=== PATIENT | male | born 1950 | race Caucasian/White ===

== ENCOUNTER → 2017-11-16 | Outpatient (CLI) | payer MEDICARE ==
[~2017-11-16] MED LIST: LORT7.5T3 PO; NAPR550 PO; ONDA1TAB16 PO; ZOLO50TA PO; [UNRECOGNIZED DRUG - REMARK]
[2017-11-16 10:45] LABS: HEMATOCRIT 42.1 % (39.0-51.0); HEMOGLOBIN 14.7 GM/DL (13.0-17.0); MEAN CELL VOLUME 90.3 FL (80.0-100.0); MEAN CORPUSCULAR HEMOGLOBIN 31.5 PG (27.0-34.0); MEAN CORPUSCULAR HGB CONC 34.8 % (32.0-36.0); MEAN PLATELET VOLUME 8.8 FL (7.0-11.0); PLATELET COUNT 193 TH/MM3 (150-450); RED BLOOD COUNT 4.66 MIL/MM3 (4.50-5.90); RED CELL DISTRIBUTION WIDTH 13.6 % (11.6-17.2); WHITE BLOOD COUNT 5.3 TH/MM3 (4.0-11.0)
[2017-11-16 10:49] LABS: PROTHROMBIN TIME - PATIENT 10.6 SEC (9.8-11.6)
[2017-11-16 11:03] LABS: ALBUMIN 3.8 GM/DL (3.4-5.0); AST (GOT) 14 U/L (15-37); BLOOD UREA NITROGEN 17 MG/DL (7-18); CALCIUM 9.1 MG/DL (8.5-10.1); CHLORIDE 109 MEQ/L (98-107); CREATININE 1.04 MG/DL (0.60-1.30); GLOMERULAR FILTRATION RATE 71 ML/MIN (>89); GLUCOSE,FASTING 83 MG/DL (74-99); SODIUM (NA) 143 MEQ/L (136-145)
[2017-11-16 11:04] LABS: ALT (GPT) 32 U/L (12-78)
[2017-11-16 11:07] LABS: ALKALINE PHOSPHATASE 64 U/L (45-117); TOTAL BILIRUBIN ADULT 0.5 MG/DL (0.2-1.0)
[2017-11-16 11:07] LABS: BILIRUBIN, URINE NEG (NEG); BLOOD, URINE NEG (NEG); GLUCOSE,URINE NEG (NEG); HYALINE CAST, URINE 2 /lpf (RARE); KETONE, URINE NEG (NEG); MUCUS URINE FEW /lpf (OCC); NITRITE,URINE NEG (NEG); PH, URINE 5.5 (5.0-8.5); SQUAMOUS EPITHELIAL CELL URINE 1 /hpf (0-5); URINE COLOR YELLOW (YELLW/STRAW); URINE LEUKOCYTE ESTERASE NEG (NEG)
--- NOTE | 2017-11-16 18:20 | EKG ---
Date Performed: 11/16/2017 Time Performed: 09:45:28 PTAGE: 67 years EKG: SINUS BRADYCARDIA WITH OCCASIONAL VENTRICULAR PREMATURE COMPLEXES LEFT VENTRICULAR HYPERTRO PHY AND ST-T CHANGE ABNORMAL ECG NO PREVIOUS TRACING DOCTOR: Isauro De Los Santos Interpretating Date/Time 11/16/2017 18:18:59
== END ==
LOC: CPRE 09:23
PROVIDERS: ATTEND Surgery
DX: Z01.810 Encounter for preprocedural cardiovascular examination (principal); Z01.812 Encounter for preprocedural laboratory examination; Z01.818 Encounter for other preprocedural examination; M79.609 Pain in unspecified limb; R94.31 Abnormal electrocardiogram [ECG] [EKG]
CPT/HCPCS: 36415; 80053; 81001; 85027; 85610; 85730; 93005

== ENCOUNTER → 2017-11-17 | Day surgery (SDC) | payer MEDICARE ==
--- NOTE | 2017-11-16 17:31 | MH ---
cc: Luca Reynoso MD, J Richard R MD DATE OF ADMISSION: 11/17/2017 ADMITTING DIAGNOSIS: Torn meniscus, left knee, now for arthroscopy of left knee HISTORY OF PRESENT ILLNESS: This pleasant 67-year-old male is being admitted today for arthroscopy of his left knee due to a torn medial meniscus as diagnosed by MRI. PAST MEDICAL HISTORY: The patient has a history of no medical problems. MEDICATIONS: Sertraline 100 mg tablet. PAST SURGICAL HISTORY: None. REVIEW OF SYSTEMS: Noncontributory. FAMILY HISTORY: Noncontributory. SOCIAL HISTORY: He smokes cigars. He does not drink. ALLERGIES: HE HAS AN ALLERGY TO PENICILLIN HE THINKS. PHYSICAL EXAMINATION: GENERAL: We find a 67-year-old male, well developed, well nourished, oriented x3 complaining of pain in the left knee. VITAL SIGNS: Blood pressure 198/70, pulse 72, respirations 16, temperature 98.3, pulse oximetry 96% on room air. HEENT: PERRLA, EOMI. Ears, nose, mouth clear. NECK: Supple. LUNGS: Clear. HEART: Regular rate. ABDOMEN: Soft, positive bowel sounds, nontender. EXTREMITIES: Reveals the left knee to be tender over the medial joint surface. No swelling or erythema. He is neurovascularly intact to his toes. IMPRESSION: Torn medial meniscus, left knee. PLAN: Admission for arthroscopy of left knee today. The patient was given prescription for postoperative pain control in the office. MD YENI Badillo/ , 05:18 PM , 05:30 PM
[~2017-11-17] VITALS: Ht 182.9 cm; Wt 101.9 kg
[~2017-11-17] MED LIST changes: +*morphine SULFATE 10 MG/ML PERIprocedure ONLY ONE; +ACETAMINOPHEN/HYDROcodone 325 MG/5 MG TAB PO PRN; +BUPIVACAINE HCL PF 0.5% 30 ML VIAL ONE; +DEXAMETHASONE SOD PHOS 4 MG/ML VIAL IV ONE; +DEXAMETHASONE SOD PHOS 4 MG/ML VIAL ONE; +DO NOT ADM ANY ANTICOAGULANT DRUGS PRN; +LIDOCAINE HCL 1% PF 5 ML SYRINGE OTHER ONE; -LORT7.5T3 PO; +MEPERIDINE HCL 50 MG/ML VIAL IM PRN; +MIDAZOLAM HCL 2 MG/2 ML VIAL ONE; -NAPR550 PO; -ONDA1TAB16 PO; +ONDANSETRON HCL 4 MG/2 ML VIAL IV ONE; +ONDANSETRON ODT 4 MG TAB SL PRN; +PROPOFOL 200 MG/20 ML AMP IV ONE; +ceFAZolin 2 GM PREMIX 50 ML ONE; +ePHEDrine/NS 25 MG/5 ML SYRINGE IV ONE
--- NOTE | 2017-11-17 09:34 | HHI.PR ---
Immediate Post Op Note Procedure Date: Nov 17, 2017 Pre Op Diagnosis: torn medial meniscus left knee Post Op Diagnosis: torn medial meniscus left knee Surgeon: Luca Reynoso MD Vp Data(s): Tasia NIEVES Procedure: Left Knee Arthroscopy with meniscectomy and chondroplasty Complications: none Specimen(s) removed: none Estimated blood loss: < 10cc Anesthesia: General Drains: None IVF Urinary Output (mLs): 0 (no kapoor) Tourniquet time (min at mmHg) none Patient to: SDS Patient Condition: Good Implant/Devices: SEE IMPLANT LOG (if applicable) Date/Time of Procedure: SEE SURGICAL CARE RECORD Tasia Jones Nov 17, 2017 09:34
--- NOTE | 2017-11-17 09:49 | MP ---
cc: Luca Reynoso MD DATE OF OPERATION: 11/17/2017 DATE OF SURGERY: 11/17/2017. PREOPERATIVE DIAGNOSIS: Torn medial meniscus, left knee. POSTOPERATIVE DIAGNOSIS: 1. Torn medial meniscus, left knee. 2. 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 SURGERY PERFORMED: Arthroscopy, excision of torn posterior horn medial meniscus and ArthroCare shaving of the undersurface of the femoral condyle. SURGEON: Luca Reynoso MD POT PUSHER: EZEQUIEL Kuo ANESTHESIA: LMA. PROCEDURE The patient was brought to the operating room and placed on the operating room table in the supine position. After successful induction of general anesthesia, the patient's ?? leg was prepped and draped in the usual manner. The knee was then placed in a knee burroughs and tightened. Arthroscopic examination was then performed by making a stab wound over the proximal superior and medial aspect of the patellofemoral joint for insertion of the inflow cannula and fluid, followed by stab wounds over the medial and lateral joint margins respectively for insertion of the arthroscope, shaver and probe. Arthroscopic examination was then performed which revealed an intact lateral compartment, intact patellofemoral joint, intact anterior cruciate. The medial compartment was found to have a large tear with flipped fragment of the posterior horn of the medial meniscus, which was removed using ArthroCare cutter, shaver and probed to afford a smooth surface. More than 2/3 of the medial meniscus remained intact. Undersurface of the medial femoral condyle revealed grade 2 chondromalacia changes, which was shaved smoothed using the ArthroCare system. The wound was irrigated copiously with lactated Ringer's solution, excess fluid removed and 8 mL of 0.5% Marcaine plain and 2 mL of Decadron inserted around the knee joint. Skin approximated with interrupted 3-0 nylon suture. Wet and then dry dressing applied to the wound, followed by Xeroform gauze, sterile dressing and thigh-high Jorge wrap. TOURNIQUET TIME: No tourniquet utilized. ESTIMATED BLOOD LOSS: 5 mL. COUNTS: Sponge and suture counts were correct. CONDITION ON DISCHARGE: The patient tolerated the procedure and left the operating room in satisfactory condition. NOTE: EZEQUIEL Kuo, was present during the entire procedure to include patient positioning and the procedure. The medical necessity of a nurse practitioner first line production supervisor was indicated in this case due to the surgical complexity of the case itself. During the surgical case the surgical instrument repair specialist was working the back table while my instructor adjunct surgical technician EZEQUIEL was directly assisting me. J. MD YENI Mueller/EVELIA , 09:09 AM , 09:22 AM
[2017-11-17 11:13] VITALS: BP 129/71; PULSE 59; RESP 16; TEMP 97.5; O2SAT 98
== END | disposition home or self-care (01) ==
LOC: HSDC 05:30
PROVIDERS: ATTEND Surgery
DX: S83.242A Other tear of medial meniscus, current injury, left knee, initial encounter (principal); M94.262 Chondromalacia, left knee; F17.290 Nicotine dependence, other tobacco product, uncomplicated; Z88.0 Allergy status to penicillin
CPT/HCPCS: 01400; 29881; J0690; J1100; J2250; J2270; J2405; J3010